=== PATIENT | male | born 1940 | race Caucasian/White ===

== ENCOUNTER 2020-01-10 15:10 | Emergency (ER) | payer MEDICARE, OTHER ==
--- NOTE | 2020-01-10 15:16 | ERPHSYRPT ---
- History of Present Illness Time Seen by Provider: 01/10/20 15:16 Source: patient, family Exam Limitations: no limitations Physician History: Is a 79-year-old white male with early dementia and history of hypertension, coronary artery disease and myocardial infarction who presents with 2 episodes of syncope. One occurred yesterday and the second occurred prior to arrival today. The patient is on at least 4 medications a can lower his blood pressure and he arrives with a systolic blood pressure in the 80s. There was some recent changes to his blood pressure medication. Patient's spouse states that he is taking Plavix. Patient did not hit his head. He did suffer a skin tear to his left upper arm but he does not have any pain in this area and has full range of motion. The patient and his spouse state that they do not want to be admitted into the hospital and are willing to sign refusal of treatment and AGAINST MEDICAL ADVICE if it is recommended that the patient be admitted to the hospital or transferred to the hospital. Patient denies chest pain and he denies shortness of breath. He has no abdominal pain. He said no nausea vomiting or diarrhea. He has had no fevers. Patient has been traveling from [place] to [facility]. They travel back and forth and stay in [place] from September to February then return to [place] and stay until August. They recently traveled back from [place] to close up their trailer here in [facility] prior to heading back to [place]. Patient's stated that she does not think he has been drinking or eating well in the last few days Witnessed: by family Prior Episodes: single episode today, other (Another single episode happened yesterday.) Timing/Duration: today, yesterday Precipitating Factors: lightheadedness Context: standing Loss of Consciousness: brief (seconds) Charcter of event(s): felt faint Allergies/Adverse Reactions: Penicillins Allergy (Intermediate, Verified 02/18/16 17:37) Rash Home Medications: Garlic 1 tab PO DAILY 02/09/16 [History] Lovastatin 1 tab PO DAILY 02/09/16 [History] Omeprazole 20 MG [Prilosec 20 mg] 1 tab PO DAILY 02/09/16 [History] Tamsulosin HCl 0.4 mg [Flomax 0.4 MG] 1 tab PO DAILY 02/09/16 [History] Clopidogrel Bisulfate 75 mg [PLAVIX 75 MG Tablet] 75 mg DAILY 02/18/16 [History] Isosorbide Mononitrate 30 mg [Imdur 30 MG] 30 mg PO DAILY 01/10/20 [History] Metoprolol Succinate 50 mg [Toprol Xl 50 MG] 50 mg PO DAILY 01/10/20 [History] Olmesartan Medoxomil 20 mg [Benicar 20 MG] 20 mg PO DAILY 01/10/20 [History] Hx Tetanus, Diphtheria Vaccination/Date Given: Yes Hx Influenza Vaccination/Date Given: Yes Hx Pneumococcal Vaccination/Date Given: Yes Travel Risk - International Travel Have you traveled outside of the country in past 3 weeks: No - Coronavirus Screening Are you exhibiting any of the following symptoms?: No Close contact with a COVID-19 positive Pt in past 14-21 Days: No - Past Medical History Pertinent Past Medical History: Yes Neurological History: No Pertinent History ENT History: No Pertinent History Cardiac History: Coronary Artery Disease, Hypertension, Myocardial Infarction (SD) Respiratory History: No Pertinent History Endocrine Medical History: No Pertinent History Musculoskeletal History: No Pertinent History GI Medical History: GERD History: No Pertinent History Psycho-Social History: No Pertinent History Male Reproductive Disorders: No Pertinent History - Past Surgical History Past Surgical History: Yes Cardiac: CABG Respiratory: No Pertinent History Gastrointestinal: Hernia Repair Genitourinary: No Pertinent History Musculoskeletal: No Pertinent History Male Surgical History: No Pertinent History - Social History Smoking Status: Former smoker Exposure to second hand smoke: No Drug Use: none Patient Lives Alone: No - Review of Systems Constitutional: No Symptoms Eyes: No Symptoms Ears, Nose, & Throat: No Symptoms Respiratory: No Symptoms Cardiac: No Symptoms Abdominal/Gastrointestinal: No Symptoms Genitourinary Symptoms: No Symptoms Musculoskeletal: Fall Skin: Other (Small skin tear upper outer left arm) Neurological: Dizziness Endocrine: No Symptoms Hematologic/Lymphatic: No Symptoms Immunological/Allergic: No Symptoms All Other Systems: Reviewed and Negative Physical Exam - Nursing Vital Signs Nursing Vital Signs: Initial Vital Signs Temperature 97.8 F 01/10/20 15:18 Pulse Rate 82 01/10/20 15:18 Respiratory Rate 18 01/10/20 15:18 Blood Pressure 86/45 01/10/20 15:18 O2 Sat by Pulse Oximetry 96 01/10/20 15:18 Pain Scale Pain Intensity 0 - [place] Coma Scale Best Eye Response (Bill): (4) open spontaneously Best Verbal Response (Bill): (5) oriented Best Motor Response (Bill): (6) obeys commands Bill Total: 15 - Physical Exam General Appearance: no apparent distress, alert, anxiety Eye Exam: bilateral eye: normal inspection, PERRL, EOMI Ears, Nose, Throat Exam: normal ENT inspection, moist mucous membranes Neck Exam: normal inspection, non-tender, supple, full range of motion Respiratory: normal breath sounds, lungs clear, airway intact, No chest tenderness, No respiratory distress, No accessory muscle use, No rhonchi, No wheezing, No stridor Cardiovascular: regular rate/rhythm, normal heart sounds, normal peripheral pulses Gastrointestinal: soft, normal bowel sounds, No tenderness Rectal Exam: not done Back Exam: normal inspection, normal range of motion, No CVA tenderness, No vertebral tenderness Extremity Exam: normal range of motion, pelvis stable, other (Mild skin tear approximately 1-1/2 cm left upper outer arm.), No deformities, No pedal edema, No swelling, No tenderness Mental Status: alert, oriented x 3, cooperative fashion marketer Exam: normal hearing, normal speech, PERRL, tongue midline Coordination/Gait: normal finger to nose Motor/Sensory: no motor deficit, no sensory deficit Skin Exam: other (Skin tear as stated above) SpO2 Interpretation: normal O2 Delivery: Room Air - Course Nursing assessment & vital signs reviewed: Yes EKG Interpreted by Me: RATE (81), Sinus Rhythm, NORMAL AXIS, NORMAL INTERVALS, NORMAL QRS, Non-specific ST Changes, Other (There is a new ventricular premature complex as well as nonspecific T abnormalities when compared to EKG dated 02/18/2016. There is no evidence of any acute ischemic changes.) Ordered Tests: Active Orders 24 hr Category Date Time Status Account Manager Relief STAT Care 01/10/20 15:47 Active EKG-ER Only STAT Care 01/10/20 15:46 Active IV Insertion STAT Care 01/10/20 15:46 Active NPO (ED) STAT Care 01/10/20 15:46 Active Pulse Oximetry (ED) STAT Care 01/10/20 15:46 Active HEAD WITHOUT CONTRAST [CT] Stat Exams 01/10/20 15:47 Taken CBC W DIFF Stat Lab 01/10/20 15:25 Completed CMP Stat Lab 01/10/20 15:25 Completed MAGNESIUM Stat Lab 01/10/20 15:25 Completed NT PRO BNP Stat Lab 01/10/20 15:25 Completed PROTIME WITH INR Stat Lab 01/10/20 15:25 Completed TROPONIN Q3H Lab 01/10/20 15:25 Completed TROPONIN Q3H Lab 01/10/20 19:00 Ordered TROPONIN Q3H Lab 01/10/20 22:00 Ordered TROPONIN Q3H Lab 01/11/20 01:00 Ordered TROPONIN Q3H Lab 01/11/20 04:00 Ordered UA W/RFX UR CULTURE Stat Lab 01/10/20 16:28 Completed Medication Summary Generic Name Dose Route Start Last Admin Trade Name Freq PRN Reason Stop Dose Admin Sodium Chloride 500 mls @ 500 mls/hr 01/10/20 16:57 Sodium Chloride 0.9% 500 Ml IV 01/10/20 17:56 .Q1H ONE Discontinued Medications Generic Name Dose Route Start Last Admin Trade Name Freq PRN Reason Stop Dose Admin Sodium Chloride 1,000 mls @ 999 mls/hr 01/10/20 15:46 01/10/20 16:59 Sodium Chloride 0.9% 1000 Ml IV 01/10/20 16:46 Infused .Q1H1M STA Infusion Sodium Chloride Confirm 01/10/20 15:54 Sodium Chloride 0.9% 1000 Ml Administered 01/10/20 15:55 Dose 1,000 mls @ ud .ROUTE .STK-MED ONE Lab/Rad Data: Laboratory Result Diagrams 01/10/20 15:25 01/10/20 15:25 Laboratory Results 01/10/20 01/10/20 01/10/20 Range/Units 16:28 15:25 15:25 WBC (4.0-10.5) K/mm3 RBC (4.1-5.6) M/mm3 Hgb (12.5-18.0) gm/dl Hct (42-50) % MCV (78-100) fl MCH (26-32) pg MCHC (32-36) g/dl RDW (11.5-14.0) % Plt Count (150-450) K/mm3 MPV (7.5-11.0) fl Gran % (36.0-66.0) % Eos # (Auto) (0-0.5) Absolute Lymphs (auto) (1.0-4.6) Absolute Monos (auto) (0.0-1.3) Lymphocytes % (24.0-44.0) % Monocytes % (0.0-12.0) % Eosinophils % (0.00-5.0) % Basophils % (0.0-0.4) % Absolute Granulocytes (1.4-6.9) Basophils # (0-0.4) PT 12.1 (8.83-12.87) SECONDS INR 1.07 (0.8-3.0) Sodium (137-145) mmol/L Potassium (3.5-5.1) mmol/L Chloride (98-107) mmol/L Carbon Dioxide (22-30) mmol/L Anion Gap (5-15) MEQ/L BUN (9-20) mg/dL Creatinine (0.66-1.25) mg/dL Estimated GFR ML/MIN Glucose (74-106) mg/dL Calcium (8.4-10.2) mg/dL Magnesium (1.6-2.3) mg/dL Total Bilirubin (0.2-1.3) mg/dL AST (17-59) U/L ALT (0-50) U/L Alkaline Phosphatase (38-126) U/L Troponin I < 0.012 (0.000-0.034) ng/mL NT-Pro-B Natriuret Pep (0-1800) pg/mL Serum Total Protein (6.3-8.2) g/dL Albumin (3.5-5.0) g/dL Urine Color REJI (YELLOW) Urine Appearance SLIGHTLY CLOUDY (CLEAR) Urine pH 5.0 (5-6) Ur Specific [place] 1.027 (1.005-1.025) Urine Protein 30 (Negative) Urine Ketones NEGATIVE (NEGATIVE) Urine Blood NEGATIVE (0-5) Jose Antonio/ul Urine Nitrite NEGATIVE (NEGATIVE) Urine Bilirubin NEGATIVE (NEGATIVE) Urine Urobilinogen 4 (0-1) mg/dL Ur Leukocyte Esterase NEGATIVE (NEGATIVE) Urine WBC (Auto) 0-2 (0-5) /HPF Urine RBC (Auto) 0-2 (0-2) /HPF U Hyaline Cast (Auto) 26-50 (0-2) /LPF U Epithel Cells (Auto) NONE (FEW) /HPF Urine Bacteria (Auto) NONE (NEGATIVE) /HPF Urine Mucus (Auto) SLIGHT (NEGATIVE) /HPF Urine Culture Reflexed NO (NO) Urine Glucose NEGATIVE (NEGATIVE) mg/dL 01/10/20 01/10/20 Range/Units 15:25 15:25 WBC 8.8 (4.0-10.5) K/mm3 RBC 5.11 (4.1-5.6) M/mm3 Hgb 14.6 (12.5-18.0) gm/dl Hct 44.0 (42-50) % MCV 86.1 (78-100) fl MCH 28.6 (26-32) pg MCHC 33.2 (32-36) g/dl RDW 14.9 H (11.5-14.0) % Plt Count 244 (150-450) K/mm3 MPV 9.1 (7.5-11.0) fl Gran % 82.8 H (36.0-66.0) % Eos # (Auto) 0.05 (0-0.5) Absolute Lymphs (auto) 0.85 L (1.0-4.6) Absolute Monos (auto) 0.59 (0.0-1.3) Lymphocytes % 9.7 L (24.0-44.0) % Monocytes % 6.7 (0.0-12.0) % Eosinophils % 0.6 (0.00-5.0) % Basophils % 0.2 (0.0-0.4) % Absolute Granulocytes 7.26 H (1.4-6.9) Basophils # 0.02 (0-0.4) PT (8.83-12.87) SECONDS INR (0.8-3.0) Sodium 135 L (137-145) mmol/L Potassium 4.7 (3.5-5.1) mmol/L Chloride 105 (98-107) mmol/L Carbon Dioxide 17 L (22-30) mmol/L Anion Gap 17.7 H (5-15) MEQ/L BUN 49 H (9-20) mg/dL Creatinine 2.02 H (0.66-1.25) mg/dL Estimated GFR 34.1 ML/MIN Glucose 118 H (74-106) mg/dL Calcium 9.7 (8.4-10.2) mg/dL Magnesium 2.6 H (1.6-2.3) mg/dL Total Bilirubin 1.20 (0.2-1.3) mg/dL AST 49 (17-59) U/L ALT 16 (0-50) U/L Alkaline Phosphatase 35 L (38-126) U/L Troponin I (0.000-0.034) ng/mL NT-Pro-B Natriuret Pep 234 (0-1800) pg/mL Serum Total Protein 7.9 (6.3-8.2) g/dL Albumin 4.5 (3.5-5.0) g/dL Urine Color (YELLOW) Urine Appearance (CLEAR) Urine pH (5-6) Ur Specific [place] (1.005-1.025) Urine Protein (Negative) Urine Ketones (NEGATIVE) Urine Blood (0-5) Jose Antonio/ul Urine Nitrite (NEGATIVE) Urine Bilirubin (NEGATIVE) Urine Urobilinogen (0-1) mg/dL Ur Leukocyte Esterase (NEGATIVE) Urine WBC (Auto) (0-5) /HPF Urine RBC (Auto) (0-2) /HPF U Hyaline Cast (Auto) (0-2) /LPF U Epithel Cells (Auto) (FEW) /HPF Urine Bacteria (Auto) (NEGATIVE) /HPF Urine Mucus (Auto) (NEGATIVE) /HPF Urine Culture Reflexed (NO) Urine Glucose (NEGATIVE) mg/dL - Progress Progress: improved, re-examined Progress Note: 01/10/20 17:04 CAT scan of the head shows no acute intracranial abnormality. Medical decision making: The patient's spouse stated at the beginning of the work-up that the patient was not going to be admitted to the hospital or transferred. Patient came in hypotensive and dizzy. Patient has been diagnosed with hypotension, acute renal failure, dehydration. His CAT scan of his head is normal his cardiac enzymes are normal. Patient feels much better after a liter of fluid. They do not want to stay any longer. I think it is reasonable that the patient can be discharged home. His systolic blood pressure is now 101. I stressed the importance of rehydration and stopping his blood pressure medication until he speaks with his prescribing physician. Patient's was upset there was taking too long for the work-up. She stated there are people waiting for them. I told her that he was not the only patient in the emergency department and that it takes time to do a work-up and get the results back. Counseled pt/family regarding: lab results, diagnosis, need for follow-up, rad results - Departure Departure Disposition: Home Clinical Impression: Hypotension, Dehydration, Acute renal failure Condition: Stable Critical Care Time: No Referrals: VITA LATIF [Primary Care Provider] - Additional Instructions: Drink plenty of fluids. Stop all your blood pressure medications. Stop your isosorbide monohydrate. Stop your diuretics. Call your prescribing physician tomorrow for further management of your medications.
[2020-01-10] MEDS ORDERED: Sodium Chloride 0.9% 1000 ML 1,000 ML IV STA (15:46)
[2020-01-10] MEDS ORDERED: Sodium Chloride 0.9% 1000 ML 1,000 ML ONE (15:54)
[2020-01-10 16:00] LABS: Absolute Neutrophil Ct (ANC) 7.26 (1.4-6.9); BASOPHIL % 0.2 % (0.0-0.4); Basophil (Absolute #) 0.02 (0-0.4); Eosinophil % 0.6 % (0.00-5.0); Eosinophil (Absolute #) 0.05 (0-0.5); Hemoglobin 14.6 gm/dl (12.5-18.0); Lymphocyte (Absolute #) 0.85 (1.0-4.6); Lymphocytes % 9.7 % (24.0-44.0); Mean Cell Volume 86.1 fl (78-100); Mean Corpuscular Hemoglobin 28.6 pg (26-32); Mean Corpuscular Hgb Concent. 33.2 g/dl (32-36); Mean Platelet Volume 9.1 fl (7.5-11.0); Monocyte (Absolute #) 0.59 (0.0-1.3); Monocytes % 6.7 % (0.0-12.0); Neutrophil % 82.8 % (36.0-66.0); Platelet Count 244 K/mm3 (150-450); Red Blood Count 5.11 M/mm3 (4.1-5.6); Red Cell Distribution Width 14.9 % (11.5-14.0); White Blood Count 8.8 K/mm3 (4.0-10.5)
[2020-01-10 16:09] LABS: INR 1.07 (0.8-3.0); PROTIME 12.1 SECONDS (8.83-12.87)
[2020-01-10 16:25] LABS: ALBUMIN 4.5 g/dL (3.5-5.0); ANION GAP 17.7 MEQ/L (5-15); BILIRUBIN,TOTAL 1.2 mg/dL (0.2-1.3); Calcium 9.7 mg/dL (8.4-10.2); Creatinine 1 2.02 mg/dL (0.66-1.25); EST GLOMERULAR FILTRATION RATE 34.1 ML/MIN; MAGNESIUM 2.6 mg/dL (1.6-2.3); Potassium 4.7 mmol/L (3.5-5.1); Total Protein 7.9 g/dL (6.3-8.2)
[2020-01-10 16:41] LABS: Appearance SLIGHTLY CLOUDY (CLEAR); Bilirubin NEGATIVE (NEGATIVE); Blood NEGATIVE Ery/ul (0-5); Glucose NEGATIVE (NEGATIVE); Hyaline Casts 26-50 /LPF (0-2); Ketones NEGATIVE (NEGATIVE); Leukocyte Esterase NEGATIVE (NEGATIVE); Mucus SLIGHT /HPF (NEGATIVE); Nitrite NEGATIVE (NEGATIVE); Protein,Urine Dip 30 (Negative); RBC 0-2 /HPF (0-2); Specific Gravity 1.027 (1.005-1.025); Urobilinogen 4 mg/dL (0-1); WBC 0-2 /HPF (0-5)
[2020-01-10] MEDS ORDERED: Sodium Chloride 0.9% 500 ML 500 ML IV ONE (16:57)
[2020-01-10 17:10] VITALS: BP 101/52; PULSE 78; O2SAT 99
--- NOTE | 2020-01-12 08:14 | XRAY ---
Indication: Syncope. Multiple contiguous axial images obtained through the head without contrast. Comparison: February 09, 2016. Age-appropriate global atrophy. No acute intracranial hemorrhage, abnormal extra-axial fluid collection, or mass effect. Fourth ventricle is midline without hydrocephalus. Gomez-white matter differentiation preserved. Bony calvarium intact. Visualized paranasal sinuses and mastoid are cells are clear. Impression: Continued negative CT head without contrast exam.
== END 2020-01-10 17:19 | disposition home or self-care (01) ==
LOC: ED 15:10
DX: I95.9 Hypotension, unspecified (principal); E86.0 Dehydration; N17.9 Acute kidney failure, unspecified
CPT/HCPCS: 36000; 36415; 70450; 80053; 81001; 83735; 83880; 84484; 85025; 85610; 93005; 93041; 94760; 96360; 99284